=== PATIENT | female | born 1990 | race Caucasian/White ===

== ENCOUNTER 2018-12-05 12:00 | Inpatient (IN) | payer BC ==
--- NOTE | 2018-12-19 07:42 | PDOC.LDHP ---
Labor and Delivery H&P Chief complaint: scheduled section HPI: 28 yo @ 40w0d by LMP c/w 8 week CRL who presents for RCS due to H/O CS x1, breech presentation, polyhydramnios, GHTN and gestational thrombocytopenia. Current gestational age (weeks): 40 Due date: 12/19/18 Dating criteria: last menstrual period Grav: 2 Para: 1 OB History Details: CS x1 Current complications: gestational hypertension, breech, other ( Polyhydramnios Gestational thrombocytopenia) Abnormal US findings: No Past Medical History: Denies Current medications: pre-camryn vitamins Previous surgical history: low tranverse CS Allergies/Adverse Reactions: Allergies Allergy/AdvReac Type Severity Reaction Status Date / Time Sulfa (Sulfonamide Allergy Intermediate Rash Verified 12/19/18 12:05 Antibiotics) Social history: none - Physical Exam Vital signs reviewed and normal: yes Abnormal vital signs: normal - mild range General: NAD Heart: RRR Lungs: nonlabored breathing Abdomen: gravid Extremeties: no edema FHT: category 1 (140s, mod noé, +accels. no decels) [place] contractions every: no ctx - Vaginal Exam cm dilated: 0 Effacement: 0% Station: -3 - OB Labs Blood type: O RH: positive Antibody Screen: negative HIV: negative RPR: negative HEPSAg: negative 1 hour GCT: negative GBS: negative Urine drug screen: negative Rubella: immune Additional Labs: Gestational thrombocytopenia - Assessment 40w0d IUP H/O LTCS x1 GHTN Gestational thrombocytopenia Polyhydramnios Breech presentation - Plan Plan: to OR for section, informed consent obtained, anesthesia consult for pain management
[2018-12-19] MEDS ORDERED: hydrALAZINE 20 MG/ML VIAL SLOW IVP PRN ×2 (11:18→17:21)
[2018-12-19] MEDS ORDERED: CEFAZOLIN 2 GM in Premix Bag 1 BAG IVPB SCH (11:18)
[2018-12-19] MEDS ORDERED: Promethazine HCl 25 MG/ML VIAL IM PRN ×2 (11:18→14:19)
[2018-12-19] MEDS ORDERED: Bicitra 30 ML UDCUP PO SCH (11:18)
[2018-12-19] MEDS ORDERED: Ondansetron PF 4 MG/2 ML Vial IVP PRN ×2 (11:18→14:19)
[2018-12-19 11:58] LABS: Hemoglobin 13.8 g/dL (12.0-16.0); Mean Corpuscular HGB CONC 34.3 g/dL (32.0-36.0); Mean Corpuscular Hemoglobin 30.2 pg (27.0-31.0); Platelet Count 106 thou/uL (130-400); RBC Distribution Width 12.2 % (11.5-14.5); Red Blood Cell (RBC) Count 4.58 mill/uL (4.20-5.40); White Blood Cell (WBC) Count 6.8 thou/uL (4.8-10.8)
[2018-12-19 12:21] VITALS: BMI 38.6
[2018-12-19 12:53] LABS: ALT (SGPT) 15 U/L (8-55); AST (SGOT) 23 U/L (5-34); Albumin 3.4 g/dL (3.5-5.0); Alkaline Phosphatase 126 U/L (40-110); Anion Gap 14 mmol/L (10-20); BUN (Urea Nitrogen) 7 mg/dL (7.0-18.7); Bilirubin, Total 0.4 mg/dL (0.2-1.2); Calc. Creatinine Clearance 212 mL/min (70-130); Calcium 9.5 mg/dL (7.8-10.44); Carbon Dioxide 20 mmol/L (22-29); Chloride 106 mmol/L (98-107); Estimated GFR-MDRD Greater than 90; Globulin 2.8 g/dL (2.4-3.5); Glucose 84 mg/dL (70-105); Potassium 4.3 mmol/L (3.5-5.1); Protein, Total 6.2 g/dL (6.0-8.3); Sodium 136 mmol/L (136-145)
[2018-12-19] MEDS ORDERED: Ondansetron PF 4 MG/2 ML Vial ONE (13:10)
[2018-12-19] MEDS ORDERED: MORPHINE 5 MG/10 ML PF VIAL ONE (13:10)
[2018-12-19] MEDS ORDERED: ePHEDrine/0.9% NaCl/PF SYRINGE 50 mg/10 ml ONE (13:10)
[2018-12-19 13:14] LABS: Syphilis Antibody Nonreactive (Nonreactive); Syphilis Antibody Index 0.06 S/CO (<1.00 Non-Reactive)
[2018-12-19 13:15] LABS: HBSAg Index 0.19 S/CO (0-0.99); HIV (1/2) Antibody/Antigen Non-Reactive (NonReactive); HIV 1/2 INDEX 0.16 S/CO (<1.00); Hep B Surf Ag Non-Reactive S/CO (NonReactive)
--- NOTE | 2018-12-19 14:09 | PDOC.OPDEL ---
OB Operative/Delivery Note Delivery Dr/Surgeon: Georgette Sepulveda DO Assist: Saeed Eckert MD Pre-Delivery Diagnosis: scheduled section Procedure/Post Delivery Dx: repeat low transverse CS Weeks gestation: 40 Anesthesia: spinal - Findings A Sex: male - 1 min: 8 - 5 min: 9 - Additional Findings/Plan Placenta delivered: spontaneous findings: low transverse hysterotomy without extension, normal uterus, normal tubes, normal ovaries (PCOS appearance) Estimated blood loss: QBL 325 cc Compilations/Other Findings: in oblique position with head on maternal right, delivered in cephalic presentation Copious clear amniotic fluid Normal appearing placenta Post delivery plan: routine recovery
[2018-12-19] MEDS ORDERED: Meperidine HCl/PF 25 MG/ML VIAL SLOW IVP PRN (14:19)
[2018-12-19] MEDS ORDERED: Ondansetron HCl/PF 4 MG/2 ML Vial IVP PRN (14:19)
[2018-12-19] MEDS ORDERED: Promethazine HCl 25 MG SUPP PR PRN (14:19)
[2018-12-19] MEDS ORDERED: Naloxone HCl 0.4 mg/ml Vial IV PRN (14:19)
[2018-12-19] MEDS ORDERED: HYDROmorphone 2 MG/ML VIAL SLOW IVP PRN (14:19)
[2018-12-19] MEDS ORDERED: Naloxone HCl 0.4 mg/ml Vial IVP PRN ×2 (14:19)
[2018-12-19] MEDS ORDERED: L&D-Morphine 4 MG/ML VIAL SLOW IVP PRN (14:19)
[2018-12-19] MEDS ORDERED: diphenhydrAMINE 50 MG/ML VIAL IVP PRN (14:19)
[2018-12-19] MEDS ORDERED: Ketorolac Tromethamine 30 MG/ML VIAL IVP SCH (14:30)
[2018-12-19] MEDS ORDERED: Communication Order-Pharmacy FS SCH (14:30)
[2018-12-19] MEDS ORDERED: Ketorolac Tromethamine 30 MG/ML VIAL ONE (16:12)
[2018-12-19] MEDS: Ketorolac Tromethamine 30 MG/ML VIAL IVP PRN ×2 (16:14→22:23)
[2018-12-19] MEDS ORDERED: NS / Oxytocin 40 units/1000ml 1,000 ML ONE (16:31)
[2018-12-19] MEDS ORDERED: Lanolin Ointment 7 GM TUBE TOP PRN (17:21)
[2018-12-19] MEDS ORDERED: Acetaminophen 325 MG TAB PO PRN (17:21)
[2018-12-19] MEDS ORDERED: diphenhydrAMINE 25 MG CAP PO PRN (17:21)
[2018-12-19] MEDS ORDERED: Misoprostol 200 MCG TAB PR PRN (17:21)
[2018-12-19] MEDS ORDERED: Bisacodyl 10 MG SUPP PR PRN (17:21)
[2018-12-19] MEDS ORDERED: NS / Oxytocin 40 units/1000ml 1,000 ML IV SCH (17:21)
[2018-12-19] MEDS ORDERED: Methylergonovine 0.2 MG/ML VIAL IM PRN (17:21)
[2018-12-19] MEDS: Docusate Calcium (SURFAK) 240 MG CAP PO SCH (23:18)
[2018-12-19] MEDS: Ferrous Sulfate 325 MG TAB PO SCH (23:18)
[2018-12-20] MEDS: Ketorolac Tromethamine 30 MG/ML VIAL IVP PRN (04:27)
[2018-12-20] MEDS: Simethicone Chewable 80 MG TAB PO PRN ×2 (04:28→22:11)
[2018-12-20 05:44] LABS: Hemoglobin 12.8 g/dL (12.0-16.0); Mean Corpuscular HGB CONC 34.2 g/dL (32.0-36.0); Mean Corpuscular Hemoglobin 30.7 pg (27.0-31.0); Mean Platelet Volume 8.6 fL (7.4-10.4); Platelet Count 94 thou/uL (130-400); RBC Distribution Width 12.1 % (11.5-14.5); Red Blood Cell (RBC) Count 4.18 mill/uL (4.20-5.40)
--- NOTE | 2018-12-20 09:34 | PDOC.PP ---
Post Progress Note Post Day #: 1 Subjective: No concerns. Pain controlled. Urbina removed this morning. Minimal bleeding. Breast feeding. PO intake tolerated: yes Flatus: yes Ambulation: yes Vital Signs (12 hours) Temp Pulse Resp BP Pulse Ox 12/20/18 07:58 98.3 F 69 12 119/66 98 12/20/18 04:27 98.1 F 66 18 114/71 98 12/19/18 23:37 98.0 F 70 18 120/67 97 Weight Weight 225 lb - Physical Examination General: NAD Cardiovascular: RRR Respiratory: non-labored breathing Abdominal: no distention, appropriately TTP Fundus firm & at: below umbilicus Extremities: negative homans (B) Skin: CS incision dry & intact, no rash Neurological: no gross focal deficits Psychiatric: A&Ox3, normal affect Result Diagrams: 12/20/18 05:25 12/19/18 11:31 Additional Labs: Post Labs Blood Type O POSITIVE 12/19/18 12:13 Hep Bs Antigen Non-Reactive S/CO (NonReactive) 12/19/18 11:31 (1) delivery delivered Code(s): O82 - ENCOUNTER FOR DELIVERY WITHOUT INDICATION Status: Acute (2) Gestational hypertension Code(s): O13.9 - GESTATIONAL HTN W/O SIGNIFICANT PROTEINURIA, UNSP TRIMESTER Status: Resolved (3) Thrombocytopenia Code(s): D69.6 - THROMBOCYTOPENIA, UNSPECIFIED Status: Acute - Assessment/Plan PPD1 VSSAF Continue post care. BPs wnl-mild. Plan for d/c 1-2 days.
--- NOTE | 2018-12-20 09:35 | OP ---
DATE OF PROCEDURE: 12/19/2018 PREOPERATIVE DIAGNOSES: 1. A 40-week and 0-day intrauterine . 2. History of low-transverse delivery x1. 3. Gestational hypertension. 4. Polyhydramnios. 5. Unstable lie with recent sonogram with breech presentation. POSTOPERATIVE DIAGNOSES: 1. A 40-week and 0-day intrauterine . 2. History of low-transverse delivery x1. 3. Gestational hypertension. 4. Polyhydramnios. 5. Fetus in a right oblique position, which was manipulated into cephalic presentation on delivery. PROCEDURE PERFORMED: Repeat low-transverse delivery via Pfannenstiel skin incision. SURGEON: Georgette Sepulveda DO NEUROPSYCHOLOGY SERVICE DIRECTOR: Saeed Eckert MD COMPLICATIONS: None. ANESTHESIA: Spinal. QBL: 325 cc Findings: Normal appearing uterus, fallopian tubes and ovaries bilaterally; copious clear amniotic fluid, infant in oblique lie with head on maternal right at delivery, male with apgars 8/9, Normal appearing placenta. INDICATIONS FOR THE PROCEDURE: Ms. Anahy Cabrera is a 28-year-old, G2, P1 at 40 weeks and 0 days with an obstetrical history including gestational hypertension and a history of low-transverse delivery x1, polyhydramnios, and unstable lie. The patient was recommended to have a delivery between 37 and 38 weeks due to lack of labor and gestational hypertension. However, the patient declined and was amenable to delivery at 40 weeks as she had not undergone labor and her cervix was closed. PROCEDURE IN DETAIL: The patient was brought to the operating room. She was placed under spinal anesthesia. The patient was placed in supine position with a leftward tilt. A Urbina catheter was placed. She was prepped and draped in sterile fashion. She was given Ancef for surgical prophylaxis. An official time-out was performed. A Pfannenstiel skin incision was made using a scalpel through the previous scar. This was carried down to the underlying fascia layer. The fascia was incised in the midline and extended bilaterally using Lin scissors. The superior aspect of the fascial incision was grasped using Tona clamps, tented upward, and dissected free of the underlying rectus abdominis muscles and the same was performed to the inferior aspect of the fascial incision. The peritoneum was then entered bluntly. Peritoneal incision was extended using blunt dissection. Dave O retractor was then placed in the abdomen. The fetus was then palpated to be in oblique position with head on the right side of the abdomen. A low-transverse hysterotomy was made. The hysterotomy was extended using blunt dissection. Amniotic membranes were ruptured, noting clear amniotic fluid. During this process, the head was then brought down to the lower uterine segment and the was delivered in cephalic presentation. It was noted that there was copious clear amniotic fluid due to her polyhydramnios. The was delivered without complication. The 's cord was clamped and cut. The infant was handed to the awaiting neonatology team. Cord sample and cord blood were obtained. The placenta was delivered spontaneously intact. The uterus was cleared of all clot and debris. The hysterotomy was closed in running locking fashion using 1 Monocryl. The pelvis was irrigated and cleared of all clot and debris. The bilateral adnexa were evaluated and normal in appearance with the exception of possible slight PCOS appearance of her ovaries. The Dave O retractor was removed from the abdomen. The rectus abdominis muscles were evaluated and hemostatic. The fascia was closed in a running fashion using 0 PDS. The subcutaneous layer was copiously irrigated and hemostatic with the use of the Bovie. Subcutaneous layer was closed using 3-0 Vicryl and the skin was closed using 4-0 Monocryl and Dermabond. The patient tolerated the procedure well. There were no complications. All counts were correct x3. Job ID: [id number] [facility]
[2018-12-20] MEDS: Docusate Calcium (SURFAK) 240 MG CAP PO SCH ×2 (09:37→22:11)
[2018-12-20] MEDS: Prenatal Vitamin 1 TAB PO SCH (09:37)
[2018-12-20] MEDS: Ferrous Sulfate 325 MG TAB PO SCH ×2 (09:37→22:13)
[2018-12-20] MEDS: Ibuprofen 800 MG TAB PO SCH ×2 (13:34→22:11)
[2018-12-20] MEDS: HYDROcodone/Acetaminophen 5/325 mg Tablet PO PRN ×2 (22:11→23:42)
[2018-12-21] MEDS: Ibuprofen 800 MG TAB PO SCH ×2 (05:56→13:29)
[2018-12-21] MEDS: Simethicone Chewable 80 MG TAB PO PRN (05:56)
--- NOTE | 2018-12-21 07:26 | DIS ---
DATE OF ADMISSION: 12/19/2018 DATE OF DISCHARGE: 12/21/2018 ADMITTING DIAGNOSES: 1. Gestational hypertension. 2. Previous section x1. 3. Intrauterine at 40 weeks. DISCHARGE DIAGNOSES: 1. Gestational hypertension. 2. Previous section x1. 3. Intrauterine at 40 weeks. CONSULTATIONS: None. PROCEDURE: Repeat low transverse section. HOSPITAL COURSE: The patient is a 28-year-old female, now G2, P2, presenting to Labor and Delivery for a scheduled repeat . Also diagnosis of gestational hypertension. For complete details, please refer to the operative note. Her postoperative course has been uncomplicated. She is now postop day 2. She reports she is tolerating p.o., voiding on her own, having decreased lochia and good pain control. She has expressed a desire to be discharged today. PHYSICAL EXAMINATION: VITAL SIGNS: Blood pressure this morning 135/75, temperature 98.2, pulse of 78, respiratory rate of 18, saturating 97% on room air. GENERAL: She appears to be in no acute distress. She is alert, oriented, cooperative, and pleasant to interact with. HEAD: Normocephalic, atraumatic. ABDOMEN: Fundus is firm. Incision is clean, dry, and intact. EXTREMITIES: Nontender with minimal edema. Patient will be discharged to home with instructions to follow up in 1 week for a blood pressure check. She has instructions to seek medical attention sooner if she experiences fever, increasing pain or bleeding, drainage from the incision site or redness at the incision site. The patient will be discharged home. Prescriptions have been sent by her primary OB. Job ID: [id number]
[2018-12-21 09:10] VITALS: BP 142/82; TEMP 98.1
[2018-12-21] MEDS: Ferrous Sulfate 325 MG TAB PO SCH (09:37)
[2018-12-21] MEDS: Docusate Calcium (SURFAK) 240 MG CAP PO SCH (09:37)
[2018-12-21] MEDS: Prenatal Vitamin 1 TAB PO SCH (09:37)
[2018-12-21] MEDS: HYDROcodone/Acetaminophen 5/325 mg Tablet PO PRN (13:31)
== END 2018-12-21 14:40 | disposition home or self-care (01) | DRG 787 ==
LOC: L&D 12-19 10:32 → 3SW 12-19 17:09
PROVIDERS: ADMIT Obstetrics & Gynecology; ATTEND Obstetrics & Gynecology
PROC: 10D00Z1 Extraction of Products of Conception, Low, Open Approach (ICD-10-PCS; principal; 2018-12-19)
DX: O34.219 Maternal care for unspecified type scar from previous cesarean delivery (principal); O99.12 Other diseases of the blood and blood-forming organs and certain disorders involving the immune mechanism complicating childbirth; O13.4 Gestational [pregnancy-induced] hypertension without significant proteinuria, complicating childbirth; D69.6 Thrombocytopenia, unspecified; Z3A.40 40 weeks gestation of pregnancy; Z37.0 Single live birth; O40.3XX0 Polyhydramnios, third trimester, not applicable or unspecified; O32.1XX0 Maternal care for breech presentation, not applicable or unspecified
CPT/HCPCS: 36415; 51702; 80053; 85027; 86780; 86850; 86900; 86901; 87340; 87389; J0690; J1885; J2274; J2405